=== PATIENT | male | born 1970 | race Caucasian/White ===

== ENCOUNTER 2018-11-03 06:37 | Emergency (ER) | payer OTHER ==
--- NOTE | 2018-11-03 06:41 | EDPHY ---
H & P Time Seen by Provider: 11/03/18 06:41 HPI/ROS: CHIEF COMPLAINT: "Pulsations"in the left chest HISTORY OF PRESENT ILLNESS: 48-year-old man has had symptoms since yesterday. He has had about 10 episodes which last only a few minutes and his last 1 was today at 6:20 a.m.. He describes a feeling of"pulsations"in his left chest that going down his left arm causing some numbness and tingling in his left arm and hand. Not associated with shortness of breath or nausea or diaphoresis or radiation to other part of his body. No weakness or numbness in legs and no headache or visual disturbance or vertigo or being off balance or trouble with his speech. No neck or back pain. Symptoms not currently present, not associated with dizziness palpitations or lightheadedness. REVIEW OF SYSTEMS: Eye: no change in vision ENT: no sore throat Cardiac: HPI, no recent trauma Pulmonary: no cough or SOB Abdomen: no vomiting, diarrhea, abdominal pain Musculoskeletal: no back pain or neck pain Skin: no rash Neuro: no headache Constitutional: no fever : no urinary symptoms A comprehensive 10 point review of systems is otherwise negative aside from elements mentioned in the history of present illness. PAST MEDICAL HISTORY: Includes sleep apnea, some neck and back problems but no previous spinal surgery Family history: Positive for father with coronary disease in his late 40s. Social history: Uses nicotine but negative for tobacco or cocaine or other drugs. No recent travel or surgery. General Appearance: Alert and conversant, cooperative. Eyes: No scleral icterus. ENT, Mouth: Normal mucous membranes. Respiratory: Normal respiratory effort, breath sounds equal, lungs are clear to auscultation. Cardiovascular: Regular rate and rhythm. No murmur. Gastrointestinal: Abdomen is soft and non tender. Neurological: Alert, face symmetric, normal motor and sensory in extremities. Specifically normal left radial pulse, normal motor and sensory and radial median and ulnar nerve distributions. 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 Skin: Warm and dry, no rashes. Musculoskeletal: No calf tenderness or edema. Psychiatric: Not agitated. Emergency Department course/MDM: Patient is a description of symptoms sounds more likely to be muscular or peripheral neurologic. Vascular considered, has normal perfusion in left arm. The spinal considered, has normal motor and sensory in the left arm. Coronary disease considered because of his family history. Initial EKG is normal. Troponin is normal. 825: Patient has a HEART score of 2. He would get 1 point for age, 0 points for history, 1 point for risk factor of family history, 0 points for EKG, and 0 points for troponin. The shared decision-making instrument was personally reviewed with the patient by myself, including the risk of MACE. Patient states understanding and agreement with the chosen disposition. Repeat troponin at 9:50 a.m., discharge with Cardiology follow-up if normal. 954: 12-lead EKG interpreted by me; official reading is in computer system. My interpretation is sinus rhythm rate 83 with normal intervals and no ischemic changes. 2nd troponin is negative. Constitutional: Initial Vital Signs Temperature (C) 36.4 C 11/03/18 06:40 Heart Rate 90 11/03/18 06:40 Respiratory Rate 18 11/03/18 06:40 Blood Pressure 158/102 H 11/03/18 06:40 O2 Sat (%) 97 11/03/18 06:40 O2 Delivery Mode Room Air Allergies/Adverse Reactions: No Known Allergies Allergy (Unverified 11/03/18 06:45) Home Medications: Medication Instructions Recorded Aspirin 325 mg PO 11/03/18 Medical Decision Making - Diagnostics EKG Interpretation: 12-lead EKG interpreted by me; official reading is in computer system. My interpretation is sinus rhythm rate 90 no ischemic changes and normal intervals. Imaging Results: Imaging Impressions Chest X-Ray 11/03/18 07:06 Impression: Normal. Negative chest x-ray personally interpreted Imaging: I viewed and interpreted images myself Differential Diagnosis: Differential diagnosis considered for chest pain including but not limited to myocardial ischemia, aortic dissection, pericarditis, pulmonary embolus, chest wall pain, pleural inflammation and pulmonary infectious causes. - Data Points Laboratory Results: Laboratory Results 11/03/18 06:46 11/03/18 06:46 11/03/18 11/03/18 11/03/18 09:47 06:50 06:46 WBC RBC Hgb Hct MCV MCH MCHC RDW Plt Count MPV Neut % (Auto) Lymph % (Auto) [place] % (Auto) Eos % (Auto) Baso % (Auto) Nucleat RBC Rel Count Absolute Neuts (auto) Absolute Lymphs (auto) Absolute Monos (auto) Absolute Eos (auto) Absolute Basos (auto) Absolute Nucleated RBC Immature Gran % Immature Gran # Sodium 139 mEq/L mEq/L (135-145) Potassium 4.1 mEq/L mEq/L (3.5-5.2) Chloride 107 mEq/L mEq/L (97-110) Carbon Dioxide 22 mEq/l mEq/l (22-31) Anion Gap 10 mEq/L mEq/L (6-14) BUN 17 mg/dL mg/dL (7-23) Creatinine 1.0 mg/dL mg/dL (0.7-1.3) Estimated GFR > 60 Glucose 103 mg/dL H mg/dL (70-100) Calcium 9.2 mg/dL mg/dL (8.5-10.4) POC Troponin I 0.00 ng/mL ng/mL 0.01 ng/mL ng/mL (0.00-0.08) (0.00-0.08) 11/03/18 06:46 WBC 6.09 10^3/uL 10^3/uL (3.80-9.50) RBC 5.16 10^6/uL 10^6/uL (4.40-6.38) Hgb 16.0 g/dL g/dL (13.7-17.5) Hct 46.9 % % (40.0-51.0) MCV 90.9 fL fL (81.5-99.8) MCH 31.0 pg pg (27.9-34.1) MCHC 34.1 g/dL g/dL (32.4-36.7) RDW 12.1 % % (11.5-15.2) Plt Count 192 10^3/uL 10^3/uL (150-400) MPV 11.1 fL fL (8.7-11.7) Neut % (Auto) 63.6 % % (39.3-74.2) Lymph % (Auto) 23.5 % % (15.0-45.0) [place] % (Auto) 9.4 % % (4.5-13.0) Eos % (Auto) 1.8 % % (0.6-7.6) Baso % (Auto) 1.5 % % (0.3-1.7) Nucleat RBC Rel Count 0.0 % % (0.0-0.2) Absolute Neuts (auto) 3.88 10^3/uL 10^3/uL (1.70-6.50) Absolute Lymphs (auto) 1.43 10^3/uL 10^3/uL (1.00-3.00) Absolute Monos (auto) 0.57 10^3/uL 10^3/uL (0.30-0.80) Absolute Eos (auto) 0.11 10^3/uL 10^3/uL (0.03-0.40) Absolute Basos (auto) 0.09 10^3/uL 10^3/uL (0.02-0.10) Absolute Nucleated RBC 0.00 10^3/uL 10^3/uL (0-0.01) Immature Gran % 0.2 % % (0.0-1.1) Immature Gran # 0.01 10^3/uL 10^3/uL (0.00-0.10) Sodium Potassium Chloride Carbon Dioxide Anion Gap BUN Creatinine Estimated GFR Glucose Calcium POC Troponin I Point of Care Test Results: Chemistry 11/03/18 11/03/18 09:47 06:50 POC Troponin I 0.00 ng/mL ng/mL 0.01 ng/mL ng/mL (0.00-0.08) (0.00-0.08) Departure - Departure Disposition: Home, Routine, Self-Care Clinical Impression: Chest pain Qualifiers: Chest pain type: unspecified Qualified Code(s): R07.9 - Chest pain, unspecified Condition: Good Instructions: Chest Pain (ED) Referrals: Alejandro Morgan MD [Medical Doctor] - As per Instructions
[2018-11-03 07:12] LABS: PLATELET COUNT 192 10^3/uL (150-400)
--- NOTE | 2018-11-03 07:50 | CPEKG ---
Test Reason : OPEN Blood Pressure : / mmHG Vent. Rate : 090 BPM Atrial Rate : 089 BPM P-R Int : 175 ms QRS Dur : 112 ms QT Int : 383 ms P-R-T Axes : 019 034 045 degrees QTc Int : 469 ms Sinus rhythm Confirmed by German Caal ([id number]) on 11/03/2018 7:49:54 AM Referred By: Confirmed By:German Caal
--- NOTE | 2018-11-03 09:57 | CPEKG ---
Test Reason : OPEN Blood Pressure : / mmHG Vent. Rate : 083 BPM Atrial Rate : 085 BPM P-R Int : 176 ms QRS Dur : 111 ms QT Int : 386 ms P-R-T Axes : 009 013 045 degrees QTc Int : 454 ms Sinus rhythm Confirmed by German Caal ([id number]) on 11/03/2018 9:57:04 AM Referred By: Confirmed By:German Caal
[2018-11-03 10:12] VITALS: BP 144/93
== END 2018-11-03 10:11 | disposition home or self-care (01) ==
DX: R07.9 Chest pain, unspecified (principal); R20.2 Paresthesia of skin
CPT/HCPCS: 84484-ER